=== PATIENT | female | born 1950 | race Caucasian/White ===

== ENCOUNTER 2016-10-24 11:22 | Emergency (ER) | payer BC, OTHER ==
--- NOTE | 2016-10-24 12:24 | Emergency Department Record ---
History of Present Illness - General Chief Complaint: Fall Injury Stated Complaint: FALL Time Seen by Provider: 10/24/16 12:23 Source: Patient Mode of Arrival: Ambulatory Limitations: No limitations - History of Present Illness Initial Comments: The patient is here due to R anterior rib pain. She was at work and was running after a child and tripped, landing onto a sharp rock hitting her R anerior chest. She denied any head injury, neck pain or any back pain. She is only having R anterior rib pain and tenderness at the impact site. She denies any L sided CP, SOB, MARTA or AP. MD Complaint: Fall Onset/Timin -: Hour(s) Fall From: Other When Fall Occurred: Just prior to arrival Fall Witnessed: Yes, by bystander Place Fall Occurred: Work Loss of Consciousness: None Prolonged Down Time?: No Symptoms Prior to Fall: None Quality: Aching, Sharp Context: Tripped/slipped Associated Symptoms: Denies - Related Data Home Medications Medication Instructions Recorded Confirmed Last Taken Levothyroxine Sodium [Synthroid] 12.5 mcg PO QD tab 08/22/16 10/24/16 Unknown Metoprolol Succinate 25 mg PO DAILY tab 08/22/16 10/24/16 Unknown Ranitidine HCl [Zantac] 300 mg PO DAILY 10/24/16 10/24/16 Unknown Rosuvastatin Calcium [Rosuvastatin 20 mg PO DAILY 10/24/16 10/24/16 Unknown Calcium] Allergies Allergy/AdvReac Type Severity Reaction Status Date / Time No Known Drug Intolerances Allergy Unknown Unverified 08/22/16 17:06 Travel Screening - Travel/Exposure Within Last 30 Days Have you traveled within the last 30 days?: No Review of Systems Constitutional: Denies: Chills, Fever Eyes: Denies: Eye discharge ENT: Denies: Congestion Respiratory: Denies: Cough, Dyspnea Past Medical History - SOCIAL HISTORY Smoking Status: Former smoker Alcohol Use: None - RESPIRATORY Hx Respiratory Disorders: No - CARDIOVASCULAR Hx Cardio Disorders: Yes Hx Palpitations: Yes (on meto prolol) Comment:: high cholesterol - NEURO Hx Neuro Disorders: No - GI Hx GI Disorders: Yes Comment:: c/o dysphagia, was dilated in Jul with good results - Hx Genitourinary Disorders: No - ENDOCRINE Hx Endocrine Disorders: Yes Hx Thyroid Disease: Yes - MUSCULOSKELETAL Hx Musculoskeletal Disorders: No - PSYCH Hx Psych Problems: No - HEMATOLOGY/ONCOLOGY Hx Hematology/Oncology Disorders: No Family Medical History Any Significant Family History?: Yes Hx Cancer: Father, Mother, Brother/Sister *Cancer Comment: uterine, leukemia, breast Hx Heart Disease: Father Physical Exam - General General Appearance: Alert, Oriented x3, Cooperative - Head Head exam: Atraumatic, Normocephalic, Normal inspection Head exam detail: negative: Abrasion, Contusion, General tenderness - Eye Eye exam: Normal appearance, PERRL - Neck Neck exam: Normal inspection, Full ROM. negative: Tenderness - Respiratory Respiratory exam: Normal lung sounds bilaterally, Chest wall tenderness (There is no bruising, swelling, or abrasions appreciated at the impact site. There is mild tenderness to palpation.). negative: Rhonchi, Stridor, Wheezes - Cardiovascular Cardiovascular Exam: Regular rate, Normal rhythm, Normal heart sounds - GI/Abdominal GI/Abdominal exam: Soft, Normal bowel sounds. negative: Tenderness - Extremities Extremities exam: Normal inspection, Full ROM, Normal capillary refill. negative: Tenderness Image of Full Body: 1 - Site of point tenderness. - Back Back exam: Reports: Normal inspection. Denies: Vertebral tenderness Course Vital Signs 10/24/16 12:00 Temperature 98.5 F Pulse Rate 64 Respiratory 20 Rate Blood Pressure 142/76 Pulse Ox 96 - Reevaluation(s) Reevaluation #1: The patient is doing very well at this time. She denies any significant pain or discomfort. I did explain her neg xrays to her and the need for F/u. 10/24/16 13:33 Medical Decision Making - Data Complexity MDM Data: X-Ray Ordered and/or Reviewed - Radiology Data Radiology results: Report reviewed (R Ribs: Neg per Rad.) Disposition Disposition: Discharge Clinical Impression: Contusion, chest wall Qualifiers: Encounter type: initial encounter Laterality: right Qualified Code(s): S20.211A - Contusion of right front wall of thorax, initial encounter Disposition: Home, Self-Care Condition: (1) Good Instructions: Chest Wall Pain (ED) Additional Instructions: Please take your home pain medicines if needed. Rest when possible. Please see your PCP if not better in 3 days and return to the ER for any increased pain, fever, or swelling. Forms: Patient Portal Access Time of Disposition: 13:32
[2016-10-24] MEDS ORDERED: ACETAMINOPHEN 325 MG TAB PO ONE (12:28)
== END 2016-10-24 13:37 | disposition home or self-care (01) ==
LOC: ER 11:22
DX: S20.211A Contusion of right front wall of thorax, initial encounter (principal); W01.0XXA Fall on same level from slipping, tripping and stumbling without subsequent striking against object, initial encounter; Y92.219 Unspecified school as the place of occurrence of the external cause; Y99.0 Civilian activity done for income or pay
CPT/HCPCS: 99283

== ENCOUNTER 2016-11-14 17:24 | Emergency (ER) | payer BC, OTHER ==
--- NOTE | 2016-11-14 18:00 | Emergency Department Record ---
History of Present Illness - General Chief Complaint: Fall Injury Stated Complaint: LUMP IN RIGHT BREAST Time Seen by Provider: 11/14/16 17:32 Source: Patient Mode of Arrival: Ambulatory Limitations: No limitations - History of Present Illness Initial Comments: 66 yo female presents with a lump in her right lump breast since an injury last month when she fell on a rock a few weeks ago. The area is not warm or redness. No nipple drainage. 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 No chest pain. No cough. No history of breast cancer. The firm area is the medial side of the right breast in the area of the recent injury. MD Complaint: Fall Onset/Timin -: Week(s) Fall From: Standing When Fall Occurred: Other Fall Witnessed: Yes, by bystander Place Fall Occurred: School Loss of Consciousness: None Prolonged Down Time?: No Symptoms Prior to Fall: None Location: Chest Severity: Moderate Context: Tripped/slipped Associated Symptoms: Denies - [place] Coma Scale Eye Response: (4) Open spontaneously Motor Response: (6) Obeys commands Verbal Response: (5) Oriented Eugenia Total: 15 - Related Data Home Medications Medication Instructions Recorded Confirmed Last Taken Levothyroxine Sodium [Synthroid] 12.5 mcg PO QD tab 08/22/16 11/14/16 11/14/16 Metoprolol Succinate 25 mg PO DAILY tab 08/22/16 11/14/16 11/14/16 Ranitidine HCl [Zantac] 300 mg PO DAILY 10/24/16 11/14/16 11/14/16 Rosuvastatin Calcium [Rosuvastatin 20 mg PO DAILY 10/24/16 11/14/16 11/14/16 Calcium] Allergies Allergy/AdvReac Type Severity Reaction Status Date / Time No Known Drug Intolerances Allergy Unknown PT UNSURE Verified 11/14/16 17:36 OF REACTION Travel Screening - Travel/Exposure Within Last 30 Days Have you traveled within the last 30 days?: No - Travel/Exposure Within Last Year Have you traveled outside the [place] in the last year?: No - Additonal Travel Details Have you been exposed to anyone with a communicable illness?: No - Travel Symptoms Symptom Screening: None Review of Systems Constitutional: Denies: Chills, Fever Eyes: Denies: Eye discharge ENT: Denies: Congestion, Throat pain Respiratory: Denies: Cough, Dyspnea, Hemoptysis, Stridor Cardiovascular: Reports: As per HPI, Chest pain. Denies: Palpitations, Syncope Endocrine: Denies: Fatigue Gastrointestinal: Denies: Abdominal pain, Diarrhea, Nausea, Vomiting Genitourinary: Denies: Dysuria, Urgency Musculoskeletal: Denies: Arthralgia, Back pain, Joint swelling, Myalgia Skin: Reports: Bruising. Denies: Change in color, Rash Neurological: Denies: Confusion, Headache Psychiatric: Denies: Anxiety Hematological/Lymphatic: Denies: Blood Clots, Easy bleeding, Easy bruising, Swollen glands Past Medical History - SOCIAL HISTORY Smoking Status: Former smoker Alcohol Use: Rare Drug Use: None - RESPIRATORY Hx Respiratory Disorders: No - CARDIOVASCULAR Hx Cardio Disorders: Yes Hx Palpitations: Yes (on meto prolol) Comment:: high cholesterol - NEURO Hx Neuro Disorders: No - GI Hx GI Disorders: Yes Comment:: c/o dysphagia, was dilated in Jul with good results - Hx Genitourinary Disorders: No - ENDOCRINE Hx Endocrine Disorders: Yes Hx Thyroid Disease: Yes - MUSCULOSKELETAL Hx Musculoskeletal Disorders: No - PSYCH Hx Psych Problems: No - HEMATOLOGY/ONCOLOGY Hx Hematology/Oncology Disorders: No Family Medical History Any Significant Family History?: Yes Hx Cancer: Father, Mother, Brother/Sister *Cancer Comment: uterine, leukemia, breast Hx Heart Disease: Father Physical Exam - General General Appearance: Alert, Oriented x3, Cooperative, No acute distress Limitations: No limitations - Head Head exam: Atraumatic, Normal inspection - Eye Eye exam: Normal appearance, PERRL. negative: Conjunctival injection, Periorbital swelling - ENT ENT exam: Normal exam Ear exam: Normal external inspection Nasal Exam: Normal inspection Mouth exam: Normal external inspection Teeth exam: Normal inspection Throat exam: Normal inspection - Neck Neck exam: Normal inspection - Respiratory Respiratory exam: Normal lung sounds bilaterally - Cardiovascular Cardiovascular Exam: Regular rate, Normal rhythm, Normal heart sounds - GI/Abdominal GI/Abdominal exam: Soft. negative: Tenderness - Extremities Extremities exam: Normal inspection. negative: Pedal edema, Tenderness Image of Full Body: 1 - medial right breast on palpation has a firm nodular area medial to the nipple, very feint residual bruising. No drainage. No discharge. - Back Back exam: Reports: Normal inspection, Full ROM. Denies: Muscle spasm, Rash noted, Tenderness - Neurological Neurological exam: Alert, Normal gait, Oriented X3, Reflexes normal - Psychiatric Psychiatric exam: Normal affect, Normal mood - Skin Skin exam: Dry, Intact, Normal color, Warm. negative: Erythema Course Vital Signs 11/14/16 17:39 Temperature 98 F Pulse Rate 88 Respiratory 18 Rate Blood Pressure 119/55 Pulse Ox 98 - Reevaluation(s) Reevaluation #1: I explained to the patient this is likely a hematoma as opposed to a neoplastic breast mass I recommend an US and likely a follow up mammogram Given this is workers comp she is concerned this may need to occur through the ER She can enquire on Thursday if that is required given it is related likely to her fall. 11/14/16 18:02 Disposition Disposition: Discharge Clinical Impression: Breast mass, Hematoma Disposition: Home, Self-Care Condition: (1) Good Instructions: Contusion in Adults (ED) Additional Instructions: Follow up US and Mammogram will be needed to fully evaluate the breast mass to ensure it is not a malignant tumor or hematoma from the fall Return immediately if you have redness, fever, or pain. Forms: Patient Portal Access Time of Disposition: 18:05
== END 2016-11-14 18:18 | disposition home or self-care (01) ==
LOC: ER 17:24
DX: S20.01XA Contusion of right breast, initial encounter (principal); N63 Unspecified lump in breast; W01.0XXA Fall on same level from slipping, tripping and stumbling without subsequent striking against object, initial encounter; Y92.219 Unspecified school as the place of occurrence of the external cause; Y99.0 Civilian activity done for income or pay
CPT/HCPCS: 99282

== ENCOUNTER 2016-11-17 12:06 | Emergency (ER) | payer OTHER ==
--- NOTE | 2016-11-17 13:09 | Emergency Department Record ---
History of Present Illness - General Chief Complaint: Recheck - Other Stated Complaint: CHEST INJURY Time Seen by Provider: 11/17/16 12:59 Source: Patient Mode of arrival: Ambulatory Limitations: No limitations - History of Present Illness Initial Comments: The patient is here due to sustaining a lump in her R breast from falling a month ago and it has not resolved. She was in the ER 3 days ago for it and an US was recommended. Now she is here for the US. She denies any pain, redness, fever, or any discomfort. Onset/Timin -: Week(s) Initial Visit For: Other Returns Today for: Other Symptoms Since Prior Visit: Other Associated Symptoms: None - Related Data Home Medications Medication Instructions Recorded Confirmed Last Taken Levothyroxine Sodium [Synthroid] 12.5 mcg PO QD tab 08/22/16 11/17/16 11/14/16 Metoprolol Succinate 25 mg PO DAILY tab 08/22/16 11/17/16 11/14/16 Ranitidine HCl [Zantac] 300 mg PO DAILY 10/24/16 11/17/16 11/14/16 Rosuvastatin Calcium [Rosuvastatin 20 mg PO DAILY 10/24/16 11/17/16 11/14/16 Calcium] Allergies Allergy/AdvReac Type Severity Reaction Status Date / Time No Known Drug Intolerances Allergy Unknown PT UNSURE Verified 11/14/16 17:36 OF REACTION Travel Screening - Travel/Exposure Within Last 30 Days Have you traveled within the last 30 days?: No Review of Systems Constitutional: Denies: Chills, Fever Eyes: Denies: Eye discharge ENT: Denies: Congestion Respiratory: Denies: Cough, Dyspnea Past Medical History - SOCIAL HISTORY Smoking Status: Former smoker Alcohol Use: None Drug Use: None - RESPIRATORY Hx Respiratory Disorders: No - CARDIOVASCULAR Hx Cardio Disorders: Yes Hx Palpitations: Yes (on meto prolol) Comment:: high cholesterol - NEURO Hx Neuro Disorders: No - GI Hx GI Disorders: Yes Comment:: c/o dysphagia, was dilated in Jul with good results - Hx Genitourinary Disorders: No - ENDOCRINE Hx Endocrine Disorders: Yes Hx Thyroid Disease: Yes - MUSCULOSKELETAL Hx Musculoskeletal Disorders: No - PSYCH Hx Psych Problems: No - HEMATOLOGY/ONCOLOGY Hx Hematology/Oncology Disorders: No Family Medical History Any Significant Family History?: Yes Hx Cancer: Father, Mother, Brother/Sister *Cancer Comment: uterine, leukemia, breast Hx Heart Disease: Father Physical Exam - General General Appearance: Alert, Oriented x3, Cooperative, No acute distress - Head Head exam: Atraumatic, Normocephalic, Normal inspection - Eye Eye exam: Normal appearance, PERRL - Neck Neck exam: Normal inspection, Full ROM. negative: Tenderness - Respiratory Respiratory exam: Normal lung sounds bilaterally, Other (There is a nontender mass in the R breast. There is no overlying redness or swelling.). negative: Respiratory distress - Cardiovascular Cardiovascular Exam: Regular rate, Normal rhythm, Normal heart sounds - Extremities Extremities exam: Normal inspection, Full ROM, Normal capillary refill. negative: Tenderness Course Vital Signs 11/17/16 12:33 Temperature 98.1 F Pulse Rate 64 Respiratory 18 Rate Blood Pressure 144/86 Pulse Ox 95 - Reevaluation(s) Reevaluation #1: The patient is doing well at discharge. I explained to her that I am unable to obtain the US report due to it needing to be read by a breast Radiologist. I did contact Dr. Segal and she will F/U with the patient for the result. 11/17/16 15:00 Disposition Disposition: Discharge Clinical Impression: Breast mass Disposition: Home, Self-Care Condition: (1) Good Instructions: Blunt Chest Trauma (ED) Additional Instructions: Please see your PCP in 2-3 days for recheck and to obtain the US report. Return to the ER for any problems. Forms: Patient Portal Access Time of Disposition: 15:29
--- NOTE | 2016-11-19 12:51 | ULTRASOUND REPORT ---
RESULT: BIRAD 3 = PROBABLY BENIGN - SHORT TERM FOLLOW-UP IMAGING SUGGESTED EXAM: LIMITED RIGHT BREAST ULTRASOUND HISTORY: TRAUMA TO THE RIGHT BREAST THREE WEEKS AGO. PATIENT FEELS A LUMP AT THE SITE OF INJURY. TECHNIQUE: Sonographic evaluation of the right breast was performed with attention to the 10:00 o'clock through 3:00 o'clock positions. Comparison: Previous mammogram dated 02/13/16. FINDINGS: There is heterogeneous echogenicity within the right breast from the 11:00 through 3:00 o'clock positions with multiple scattered cystic areas. There is surrounding increased echogenicity and breast edema. The appearance is consistent with recent trauma and subcutaneous hematoma. There is a focal heterogeneous area at the 3:00 o'clock position measuring 2.5 x 2.7 x 3.8 cm. This also is suggestive of a breast hematoma. Short term follow-up ultrasound is recommended to confirm resolution. No discreet solid mass is identified. IMPRESSION: FINDINGS CONSISTENT WITH RECENT TRAUMA TO THE RIGHT BREAST WITH ASSOCIATED HEMORRHAGE AND LOCALIZED HEMATOMA FORMATION. MULTIPLE INTERSPERSED CYSTIC AREAS ARE ALSO PRESENT. A SHORT TERM FOLLOW-UP RIGHT BREAST ULTRASOUND IS RECOMMENDED IN ONE MONTH TO CONFIRM RESOLUTION OF THESE AREAS. JOB NUMBER: [id number] [facility]
== END 2016-11-17 15:41 | disposition home or self-care (01) ==
LOC: ER 12:06
DX: S20.211A Contusion of right front wall of thorax, initial encounter (principal); N63 Unspecified lump in breast; W01.0XXA Fall on same level from slipping, tripping and stumbling without subsequent striking against object, initial encounter; Y92.219 Unspecified school as the place of occurrence of the external cause; Y99.0 Civilian activity done for income or pay
CPT/HCPCS: 76642; 99283

== ENCOUNTER 2017-09-27 08:25 | Emergency (ER) | payer BC ==
[2017-09-27] MEDS ORDERED: PROPARACAINE HCL OPTH 15ML BTL OPTH ONE (08:39)
--- NOTE | 2017-09-27 08:43 | Emergency Department Record ---
History of Present Illness - General Chief complaint: Eye Problem Stated complaint: RT EYE SWELLING Time Seen by Provider: 09/27/17 08:39 Source: Patient Mode of Arrival: Ambulatory Limitations: No limitations - History of Present Illness Initial comments: 66 yo female presents to ED for evaluation of swelling to the right upper eyelid and tearing since yesterday. Patient denies specific trauma or injury to the eye, denies change in vision as well. Patient does reports allergy symptoms previously as well. chief complaint: Eye redness Onset/Timin -: Days(s) Onset Description: Gradual Location: Right eye Place: Home If Injury: None Severity: Moderate Severity scale (1-10): 1 If Pain, Quality: Aching Consistency: Constant Associated Symptoms: None Treatments Prior to Arrival: Other - Related Data Visual acuity (L) = 20/: 40 Visual acuity (R) = 20/: 40 With correction: Yes Patient Tetanus UTD (within 5 yrs): No Home Medications Medication Instructions Recorded Confirmed Last Taken Tramadol HCl [Ultram] 50 mg PO Q8H PRN 09/27/17 09/27/17 Unknown Previous Rx's Medication Instructions Recorded Polymyxin B Sulf/Trimethoprim 10 ml OP Q6HR #2 drops 09/27/17 [Polytrim Eye Drops] Allergies Allergy/AdvReac Type Severity Reaction Status Date / Time No Known Drug Intolerances Allergy Unknown PT UNSURE Verified 09/27/17 08:38 OF REACTION Travel Screening - Travel/Exposure Within Last 30 Days Have you traveled within the last 30 days?: No - Travel/Exposure Within Last Year Have you traveled outside the [place] in the last year?: No - Additonal Travel Details Have you been exposed to anyone with a communicable illness?: No - Travel Symptoms Symptom Screening: None Review of Systems Constitutional: Denies: Chills, Fever, Malaise, Night sweats Eyes: Reports: Eye discharge. Denies: Eye pain, Photophobia ENT: Denies: Congestion, Ear pain, Epistaxis Respiratory: Denies: Cough, Dyspnea Cardiovascular: Denies: Chest pain, Dyspnea on exertion Endocrine: Denies: Fatigue, Heat or cold intolerance Gastrointestinal: Denies: Abdominal pain, Nausea, Vomiting Genitourinary: Denies: Incontinence, Retention Musculoskeletal: Denies: Arthralgia, Back pain Skin: Denies: Bruising, Change in color Neurological: Denies: Abnormal gait, Confusion, Headache, Seizure Psychiatric: Denies: Anxiety Hematological/Lymphatic: Denies: Anemia, Blood Clots Past Medical History - SOCIAL HISTORY Smoking Status: Former smoker Alcohol Use: None Drug Use: None - RESPIRATORY Hx Respiratory Disorders: No - CARDIOVASCULAR Hx Cardio Disorders: Yes Hx Palpitations: Yes (on metoprolol) Comment:: high cholesterol - NEURO Hx Neuro Disorders: No - GI Hx GI Disorders: Yes Comment:: c/o dysphagia, was dilated in [place] with good results - Hx Genitourinary Disorders: No - ENDOCRINE Hx Endocrine Disorders: Yes Hx Thyroid Disease: Yes - MUSCULOSKELETAL Hx Musculoskeletal Disorders: No - PSYCH Hx Psych Problems: No - HEMATOLOGY/ONCOLOGY Hx Hematology/Oncology Disorders: No Family Medical History Any Significant Family History?: Yes Hx Cancer: Father, Mother, Brother/Sister *Cancer Comment: uterine, leukemia, breast Hx Heart Disease: Father Physical Exam - General General Appearance: Alert, Oriented x3, Cooperative, Mild distress Limitations: No limitations - Head Head exam: Atraumatic, Normocephalic, Normal inspection Head exam detail: negative: Abrasion, Contusion, Rodriguez's sign, General tenderness, Hematoma, Laceration - Eye Eye exam: Conjunctival injection, Periorbital swelling, Other (MIld STS to the right eyelid on examination, injected conjunctiva on exam.). negative: Periorbital tenderness, Scleral icterus With correction: Yes - ENT Ear exam: negative: Auricular hematoma, Auricular trauma Nasal Exam: negative: Active bleeding, Discharge, Dried blood, Foreign body Mouth exam: negative: Drooling, Laceration, Muffled voice, Tongue elevation - Neck Neck exam: Normal inspection. negative: Meningismus, Tenderness - Respiratory Respiratory exam: Normal lung sounds bilaterally. negative: Rales, Respiratory distress, Rhonchi, Stridor - Cardiovascular Cardiovascular Exam: Regular rate, Normal rhythm, Normal heart sounds - GI/Abdominal GI/Abdominal exam: Soft. negative: Rebound, Rigid, Tenderness - Rectal Rectal exam: Deferred - exam: Deferred - Extremities Extremities exam: Normal inspection. negative: Calf tenderness, Pedal edema, Tenderness - Back Back exam: Denies: CVA tenderness (R), CVA tenderness (L) - Neurological Neurological exam: Alert, Normal gait, Oriented X3 - Psychiatric Psychiatric exam: Normal affect, Normal mood - Skin Skin exam: Normal color. negative: Abrasion Type of lesion: negative: abrasion Course Vital Signs 09/27/17 08:29 Temperature 97.6 F Pulse Rate 73 Respiratory 16 Rate Blood Pressure 145/101 Pulse Ox 97 - Reevaluation(s) Reevaluation #1: 09/27/17 08:52 Eye exam: Flourescein staining was performed, no corneal abrasion is noted on examination. No FB is present under the upper or lower lid, and VA was reviewed and appears symmetric bilaterally. Will treat for probable conjunctivitis with instructions for ophthalmologic follow-up. Disposition Disposition: Discharge Clinical Impression: Conjunctivitis Qualifiers: Conjunctivitis type: acute Acute conjunctivitis type: unspecified Laterality: right Qualified Code(s): H10.31 - Unspecified acute conjunctivitis, right eye Disposition: Home, Self-Care Condition: (2) Stable Instructions: Conjunctivitis (ED) Additional Instructions: Return to ED if your symptoms worsen or if you have any concerns. Polymyxin as directed. Follow-up with your family doctor in 3-5 days as directed. Prescriptions: Polymyxin B Sulf/Trimethoprim [Polytrim Eye Drops] 10 ml OP Q6HR #2 drops Forms: Patient Portal Access Time of Disposition: 08:55 Quality - Quality Measures Quality Measures: N/A - Blood Pressure Screening Does Patient Have Any of the Following: No Blood Pressure Classification: Hypertensive Reading Systolic Measurement: 145 Diastolic Measurement: 101 Screening for High Blood Pressure: < First Hypertensive BP, F/U Documented > [ [id number]] First Hypertensive Follow-up Interventions: Referral to alternative/primary care provider.
== END 2017-09-27 09:08 | disposition home or self-care (01) ==
LOC: ER 08:25
DX: H10.31 Unspecified acute conjunctivitis, right eye (principal); Z87.891 Personal history of nicotine dependence
CPT/HCPCS: 99282